=== PATIENT | male | born 1985 | race Caucasian/White ===

== ENCOUNTER 2017-05-02 13:48 | Emergency (ER) | payer OTHER, MEDICAID ==
[~2017-05-02] VITALS: Ht 185.4 cm; Wt 66.7 kg
[~2017-05-02 13:48] MED LIST: ACETAMINOPHEN-1 EAC1 PO; AMOXICILLIN 50500 M1 PO; APAP W/CODEINE1 TA2 PO; ERYTHROMYCIN E3.5 G1 OP; IBUPROFEN 200200 M1; IBUPROFEN 800800 MG PO
[2017-05-02] MEDS ORDERED: ELIMITE60 GM TOP (14:01)
[2017-05-02] MEDS ORDERED: VISTARIL 25 MG25 M1 PO (14:01)
== END 2017-05-02 14:05 | disposition home or self-care (01) ==
LOC: M.ERS 13:48
DX: B86 Scabies (principal); Z88.6 Allergy status to analgesic agent

== ENCOUNTER 2017-07-08 01:43 | Emergency (ER) | payer OTHER, MEDICAID ==
[~2017-07-08 01:43] MED LIST changes: +ELIMITE60 GM TOP; +VISTARIL 25 MG25 M1 PO
== END 2017-07-08 06:09 | disposition home or self-care (01) ==
LOC: M.ERS 01:43
DX: Z53.21 Procedure and treatment not carried out due to patient leaving prior to being seen by health care provider (principal)